=== PATIENT | female | born 1950 | race Caucasian/White ===

== ENCOUNTER → 2016-08-21 | Outpatient (CLI) | payer OTHER ==
--- NOTE | 2016-08-21 17:55 | DX ---
Cervical Spine, Two Views History: Two year followup to cervical fusion between C4 and C7. Comparison: February 21, 2016 Findings: Cervical alignment is stable and anatomic. A mild spondylolisthesis at C7-T1 is slightly gr eater. There is no evidence for an anterior compression plate fracture or screw loosening between C4 and C7. Interbody bone plugs remain in excellent position and do not show evidence for compression. T here is no prevertebral soft tissue swelling. Impression: 1. Stable postoperative cervical alignment. 2. Possibly increasing spondylolisthesis at C7-T1. If clinically indicated lateral cervical flexion-e xtension views might be useful. A Follow-Up Required test result notification was sent via the [employer] service, 5:52:27 PM, 08/21/2016 , [employer] Message ID [id number].
== END ==
LOC: FIMAGING 14:21
PROVIDERS: ATTEND Physician Assistant
DX: Z98.1 Arthrodesis status (principal); M43.13 Spondylolisthesis, cervicothoracic region

== ENCOUNTER 2016-09-28 18:48 | Emergency (ER) | payer OTHER ==
[2016-09-28] MEDS ORDERED: predniSONE 20 MG TAB PO ONE (20:27)
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
[2016-09-29 00:09] VITALS: BP 133/81; PULSE 74; RESP 20; TEMP 98.1; O2SAT 95
== END 2016-09-29 00:39 | disposition home or self-care (01) ==
LOC: CED 18:48
DX: M43.16 Spondylolisthesis, lumbar region (principal); M54.16 Radiculopathy, lumbar region; V89.2XXA Person injured in unspecified motor-vehicle accident, traffic, initial encounter; Y92.410 Unspecified street and highway as the place of occurrence of the external cause; Y93.89 Activity, other specified
CPT/HCPCS: 72100-PO; 72131-PO; G0463-PO

== ENCOUNTER → 2016-10-30 | Outpatient (CLI) | payer OTHER | LOC: FIMAGING 16:22 | PROVIDERS: ATTEND Physician Assistant | DX: Z09 Encounter for follow-up examination after completed treatment for conditions other than malignant neoplasm (principal); M43.12 Spondylolisthesis, cervical region; Z98.1 Arthrodesis status ==

== ENCOUNTER 2016-11-22 05:29 | Inpatient (IN) | payer OTHER ==
[2016-11-22] MEDS ORDERED: ceFAZolin 2 GM/DEXTROSE 100 ML IV ONE (06:00)
[2016-11-22] MEDS ORDERED: CHLORHEXIDINE GLUC HIBICLENS 118 ML BTL TP ONE (06:00)
[2016-11-22] MEDS ORDERED: LR 1,000 ML IV ONE (06:08)
[2016-11-22] MEDS ORDERED: LIDOCAINE 1% 5 ML SDV ID PRN (06:08)
[2016-11-22] MEDS ORDERED: LIDOCAINE 1% 2 ML INJ ONE (06:21)
[2016-11-22] MEDS ORDERED: HYDROmorphONE/DILAUDID 2 MG/ML INJ ONE (06:59)
[2016-11-22] MEDS ORDERED: PROPOFOL 200 MG/20 ML VIAL ONE (07:00)
[2016-11-22] MEDS ORDERED: BACITRACIN 50,000 UNITS/10 ML SYR IRR ONE (07:02)
[2016-11-22] MEDS ORDERED: ROCURONIUM 50 MG/5 ML VIAL ONE (07:02)
[2016-11-22] MEDS ORDERED: THROMBIN (BOVINE) 5,000 UNIT VIAL TP ONE ×2 (07:02→07:04)
[2016-11-22] MEDS ORDERED: BUPIVACAINE/EPI 0.25% 30 ML SDV ONE (07:02)
[2016-11-22] MEDS ORDERED: PHENYLEPHRINE HCL 100 MCG/ML SYR ONE (07:30)
[2016-11-22] MEDS ORDERED: ONDANSETRON DISINTEGRATING 4 MG TAB PO PRN (07:34)
[2016-11-22] MEDS ORDERED: diphenhydrAMINE 25 MG CAP PO PRN (07:34)
[2016-11-22] MEDS ORDERED: BISACODYL 10 MG SUPP PR PRN (07:34)
[2016-11-22] MEDS ORDERED: DIAZEPAM 10 MG/2 ML SYR IVP PRN (07:34)
[2016-11-22] MEDS ORDERED: HYDROmorphONE/DILAUDID 1 MG/ML SYR IVP PRN (07:34)
[2016-11-22] MEDS ORDERED: MAGNESIUM HYDROXIDE 30 ML UDCUP PO PRN (07:34)
[2016-11-22] MEDS ORDERED: POLYETHYLENE GLYCOL 3350 17 GM PKT PO PRN (07:34)
[2016-11-22] MEDS ORDERED: TEMAZEPAM 15 MG CAP PO PRN (07:34)
[2016-11-22] MEDS ORDERED: NALOXONE HCL 0.4 MG/ML INJ IVP PRN (07:34)
[2016-11-22] MEDS ORDERED: DIAZEPAM 5 MG TAB PO PRN (07:34)
[2016-11-22] MEDS ORDERED: LACTULOSE 20 GM/30 ML UDCUP PO PRN (07:34)
[2016-11-22] MEDS ORDERED: HYDROmorphONE/DILAUDID 6 MG/30 ML PCA IV PRN (07:34)
[2016-11-22] MEDS ORDERED: epHEDrine SULFATE 10 MG/ML SYR ONE (07:48)
[2016-11-22] MEDS ORDERED: FAMOTIDINE 20 MG/NACL 50 ML IV SCH (09:00)
[2016-11-22] MEDS ORDERED: HYDROmorphONE/DILAUDID 1 MG/ML SYR ONE (11:17)
[2016-11-22] MEDS ORDERED: fentaNYL 100 MCG/2 ML INJ ONE (11:17)
--- NOTE | 2016-11-22 11:50 | SOAPPROG ---
SOAP Progress Note Assessment/Plan: Post Op Note S: Awake and alert. NAD. Pt with expected lower back pain, legs feel better O: AFVSS/PERRLA/EOMI no droop CN 2-12 grossly intact +lt touch 5/5 BUE/BLE = CDI DENNISE in place A/P: 66 yo female that is s/p TLIF L4/5 -brace fit already -PT/OT pending -DENNISE in place -Pt seen by Dr Mckeon -Call NS with any changes or issues 11/22/16 11:48 ICD10 Worksheet Patient Problems: Problems Problem Status Onset Arthrodesis present Acute Arthrodesis status Acute H/O arthrodesis Acute Lumbago Acute Lumbar radicular pain Acute Arthrodesis status Acute Cervical radiculitis Acute Neck pain Acute - ICD10 Problem Qualifiers (1) Lumbago Qualifiers: Chronicity: C Back pain laterality: B Sciatica presence: S Sciatica laterality: S (2) Lumbar radicular pain (3) Arthrodesis status (4) Arthrodesis present (5) H/O arthrodesis
[2016-11-22] MEDS ORDERED: DIAZEPAM 5 MG TAB ONE (12:00)
[2016-11-22] MEDS: METHOCARBAMOL 750 MG TAB PO PRN (13:13)
[2016-11-22] MEDS: oxyCODONE IR 5 MG TAB PO PRN ×2 (13:13→19:45)
[2016-11-22] MEDS: ONDANSETRON 4 MG/2 ML VIAL IVP PRN ×3 (13:13→22:47)
[2016-11-22] MEDS: LIOTHYRONINE SODIUM 5 MCG TAB PO SCH (13:43)
[2016-11-22] MEDS: SENNOSIDES/DOCUSATE SODIUM TAB PO SCH ×2 (13:43→19:45)
[2016-11-22] MEDS: NS W/ 20 KCl/L 1,000 ML IV SCH (14:15)
[2016-11-22] MEDS: ACETAMINOPHEN 325 MG TAB PO PRN (17:15)
[2016-11-22] MEDS: FAMOTIDINE 20 MG TAB PO SCH (19:45)
--- NOTE | 2016-11-22 22:00 | GOP ---
[f rep st] OPERATIVE REPORT DATE OF OPERATION: 11/22/2016 SURGEON: Galen Mckeon MD CHIEF PAYROLL CLERK: Glenn Robertson PA-C. PREOPERATIVE DIAGNOSIS: Lumbar spondylolisthesis with stenosis and bilateral lumbosacral radiculopa thy L4-5, lumbar degenerative disk disease. POSTOPERATIVE DIAGNOSIS: Lumbar spondylolisthesis with stenosis and bilateral lumbosacral radiculop athy L4-5, lumbar degenerative disk disease. PROCEDURE PERFORMED: Posterior, lateral and intervertebral arthrodesis with bilateral decompression s at L4-5 with a right-sided transforaminal lumbar interbody fusion at L4-5 (70221), posterior nonse gmental instrumentation across a single interspace L4-5 (45974), microscope, stereotaxy for spinal i nstrumentation, same-incision bone graft harvest, placement of biomechanical intervertebral device L 4-5, microscope. FINDINGS: ESTIMATED BLOOD LOSS: 150 cc. DESCRIPTION OF PROCEDURE: The patient was taken to the operating room, placed in the supine positio n. General anesthesia was begun. She was flipped prone onto the Artur table. Care was taken to pad all points of contact. Her back was sterilely prepped and draped in the usual fashion. A local izing x-ray was taken. We made a 4.5 cm incision above the L4-5 interspace. The subcutaneous tissu e was dissected using Bovie cautery down through the fascia and a subperiosteal dissection was made down the L4-5 lamina. A self-retainer retractor was placed. A localizing x-ray was taken. She had terrible bilateral facet arthropathy at L4-5 with incompetent facet joints at that level. We denud ed the L4-5 facet joints, decorticated the transverse processes at L4-5, attached the Stealth refere nce frame, and using frameless Stealth stereotaxy, we placed pedicle screws bilaterally at L4 and L5 . The left L4 screw was somewhat rostral on the pedicle and this was determined by lateral x-ray. We removed that screw and placed it using stereotaxy through a new trajectory through the pedicle, a nd had excellent bony purchase. Her bone was somewhat soft, but we were able to get good purchase o f the screws. We performed an O-arm spin. The hardware was all in excellent position and stimulate d at acceptable levels. We removed all soft tissue of the bone at L4-5, decorticated all visible sharita ne present, harvested the inferior L4 spinous process for autologous grafting purposes, and drilled bilateral laminectomies at L4-5 and harvested this bone as well. We then decompressed the central t hecal sac and under the microscope removed the ligamentum flavum and perform bilateral recess decomp ressions. The right was worse than the left. We did a complete right facetectomy, then incised the L4-5 disk, removed the disk and the cartilaginous endplates. We roughened the subchondral bone to create arthrodesis at L4-5 and then chose an expandable intervertebral device which was inserted und er fluoroscopic guidance into the L4-5 space. We used 1.5 mg of BMP for the surgery in 1 mg was garima efren into the disk space. We also put bony autograft into the disk space. The device was expanded u nder fluoroscopic guidance. We were happy with the position of the device and then final tightened all our cap screws according to company specification, placed BMP and bony autograft posterolaterall y bilaterally, and then closed the incision in multiple layers using Vicryl sutures after placing a subfascial drain. There were no complications. The patient tolerated the procedure. COMPLICATIONS: None. INSTRUMENTATION: [employer] Solera pedicle screw instrumentation with an 8 x 28 mm Elevate cage with a 4.75 mm cyn system. COMPLICATIONS: None. INDICATIONS FOR THE PROCEDURE: The patient is an elderly female who struggled with a cervical fusio n surgery that she had in months past, but ultimately had an excellent result from this. Her periop erative period was challenging and it took time for her to recovery from surgery, but she has had a wonderful outcome and has returned to driving with great comfort in her neck, and she was happy. Keli colon was developing relentless and terrible bilateral leg pain, right greater than left. It was unbear able, even prompting an emergency room visit and MRIs did demonstrate spondylolisthesis at L4-5. Th ere was severe stenosis, right greater than left, and I suggested a single-level surgery. The risk of screw and hardware malposition, malfunction, major vascular injury, nerve injury, spinal fluid le ak, continued symptoms, and possible need for future surgery at adjacent segments was discussed. Keli colon knew that surgery sometimes fails and she did want to proceed. /[id number]/MODL
[2016-11-23] MEDS: ACETAMINOPHEN 325 MG TAB PO PRN (03:13)
[2016-11-23] MEDS: NS W/ 20 KCl/L 1,000 ML IV SCH (03:14)
[2016-11-23 05:06] LABS: % IMMATURE GRANULYOCYTES 0.3 % (0.0-1.1); ABSOLUTE IMMATURE GRANULOCYTES 0.02 10^3/uL (0.00-0.10); ADD DIFF? NO; ADD MORPH? NO; ADD SCAN? NO; ATYPICAL LYMPHOCYTE FLAG 20 (0-99); FRAGMENT RBC FLAG 0 (0-99); HEMATOCRIT 27.5 % (38.0-47.0); LEFT SHIFT FLG 0 (0-99); LIPEMIA HEMOLYSIS FLAG 80 (0-99); MEAN CELL HEMOGLOBIN 31.7 pg (27.9-34.1); MEAN CELL HEMOGLOBIN CONCENTR. 32.7 g/dL (32.4-36.7); MEAN CELL VOLUME 96.8 fL (81.5-99.8); MEAN PLATELET VOLUME 9.6 fL (8.7-11.7); PLATELET CLUMPS FLAG 0 (0-99); PLATELET COUNT 229 10^3/uL (150-400); RED BLOOD CELL COUNT 2.84 10^6/uL (4.18-5.33); RED CELL DISTRIBUTION WIDTH 12.9 % (11.5-15.2)
[2016-11-23] MEDS: LIOTHYRONINE SODIUM 5 MCG TAB PO SCH ×2 (05:07→08:54)
[2016-11-23] MEDS: LEVOTHYROXINE 50 MCG TAB PO SCH (05:07)
[2016-11-23 05:20] LABS: ANION GAP 4 mEq/L (8-16); CALCIUM 8.9 mg/dL (8.5-10.4); CARBON DIOXIDE 26 mEq/l (22-31); CHLORIDE 107 mEq/L (97-110); CREATININE 0.7 mg/dL (0.6-1.0); GLOMERULAR FILTRATION RATE > 60; GLUCOSE 86 mg/dL (70-100); POTASSIUM 4.7 mEq/L (3.5-5.2); SODIUM 137 mEq/L (134-144)
[2016-11-23] MEDS: oxyCODONE IR 5 MG TAB PO PRN (05:21)
[2016-11-23] MEDS: HYDROCODONE/APAP 10/325 TAB PO PRN ×3 (07:50→20:04)
--- NOTE | 2016-11-23 08:41 | NEUSURGPN ---
Assessment/Plan: A/P: 66 yo female that is s/p TLIF L4/5 -Nuero stable and doing well -Optimize pain control -PT/OT -DENNISE to be removed -Postop xrays pending today -DVT Prophy: TEDs, SCDs, Lovenox pending POD 2 -Pt seen by Dr Mckeon -Dispo- Most likely dc tomorrow if cleared by therapies -Call NS with any changes or issues Subjective: Patient has expected back pain. Legs feel great and has been up to void and walk in hallway. Pain well controlled. Objective: NAD VSS BLE 5/5= Sensation intact to lt touch Incision c/d/i-dressed DENNISE X1- to be removed today - Physician Discussed Patient with Dr.: Mike Patient Seen by : Mike Neurosurgery Physical Exam - Vitals, I&O, Labs I and O 11/22/16 11/23/16 11/24/16 05:59 05:59 05:59 Intake Total 4440 Output Total 1575 Balance 2865 Intake: Oral (ml) 2140 IV Intake (ml) 1350 IV Infused (ml) 950 NS W/ 20 KCl/L 1,000 ml @ 900 75 mls/hr IV CONT [facility] Rx #:[id number] ceFAZolin 1 GM/DEXTROSE 50 50 ml @ 200 mls/hr IV Q8HRS [facility] Rx#:[id number] Output: Urine (ml) 850 Bedside Commode 450 Toilet 400 Estimated Blood Loss (ml) 150 Emesis (ml) 300 Wound Drainage (ml) 185 Back Artur Phillips 185 Wound Drainage (ml) 90 Posterior Back Artur 90 Phillips Other: Number of Voids Toilet 1 Number of Emesis 1 Occurrences Vital Signs Temp Pulse Resp BP Pulse Ox 36.6 C 64 14 99/60 L 95 11/23/16 08:03 11/23/16 08:03 11/23/16 08:03 11/23/16 08:03 11/23/16 08:03 Laboratory Results 11/23/16 04:43 11/23/16 04:43 ICD10 Worksheet Patient Problems: Problems Problem Status Onset Arthrodesis present Acute Arthrodesis status Acute H/O arthrodesis Acute Lumbago Acute Lumbar radicular pain Acute Arthrodesis status Acute Cervical radiculitis Acute Neck pain Acute
[2016-11-23] MEDS: SENNOSIDES/DOCUSATE SODIUM TAB PO SCH ×2 (08:54→20:04)
[2016-11-23] MEDS: FAMOTIDINE 20 MG TAB PO SCH ×2 (08:54→20:04)
[2016-11-24] MEDS: HYDROCODONE/APAP 10/325 TAB PO PRN ×3 (03:49→20:09)
[2016-11-24] MEDS: LEVOTHYROXINE 50 MCG TAB PO SCH (04:55)
[2016-11-24] MEDS: LIOTHYRONINE SODIUM 5 MCG TAB PO SCH (04:55)
[2016-11-24] MEDS ORDERED: LEVOTHYROXINE 25 MCG TAB PO ONE (05:30)
--- NOTE | 2016-11-24 08:01 | NEUSURGPN ---
Assessment/Plan: A/P: 66 yo female that is s/p TLIF L4/5 on 11/22/16 -Optimize pain control -PT/OT -Postop xrays pending -DVT Prophy: TEDs, SCDs, Lovenox -Pt seen by Dr Mckeon -Dispo-Patient recommended for inpatient rehab, dispo when insurance approval/ bed available -Call NS with any changes or issues -Discussed with Dr. Mckeon Subjective: low back pain improved. Denies any new weakness Objective: NAD BUE & BLE 5/5= Sensation intact to lt touch Incision c/d/i-dressed - Physician Discussed Patient with : Mike Neurosurgery Physical Exam - Vitals, I&O, Labs I and O 11/23/16 11/24/16 11/25/16 05:59 05:59 05:59 Intake Total 4440 1200 Output Total 1575 760 Balance 2865 440 Intake: Oral (ml) 2140 1200 IV Intake (ml) 1350 IV Infused (ml) 950 NS W/ 20 KCl/L 1,000 ml @ 900 75 mls/hr IV CONT [facility] Rx #:[id number] ceFAZolin 1 GM/DEXTROSE 50 50 ml @ 200 mls/hr IV Q8HRS [facility] Rx#:[id number] Output: Urine (ml) 850 700 Bedside Commode 450 Toilet 400 700 Estimated Blood Loss (ml) 150 Emesis (ml) 300 Wound Drainage (ml) 185 60 Back Artur Phillips 185 60 Wound Drainage (ml) 90 Posterior Back Artur 90 Phillips Other: Number of Voids Toilet 1 1 Number of Emesis 1 Occurrences Vital Signs Temp Pulse Resp BP Pulse Ox 37.0 C 75 14 100/64 94 11/24/16 07:57 11/24/16 07:57 11/24/16 07:57 11/24/16 07:57 11/24/16 07:57 Laboratory Results 11/23/16 04:43 11/23/16 04:43 ICD10 Worksheet Patient Problems: Problems Problem Status Onset Arthrodesis present Acute Arthrodesis status Acute H/O arthrodesis Acute Lumbago Acute Lumbar radicular pain Acute Arthrodesis status Acute Cervical radiculitis Acute Neck pain Acute
[2016-11-24] MEDS: SENNOSIDES/DOCUSATE SODIUM TAB PO SCH ×2 (09:33→20:10)
[2016-11-24] MEDS: FAMOTIDINE 20 MG TAB PO SCH ×2 (09:33→20:10)
[2016-11-24 23:05] VITALS: RESP 16
[2016-11-25] MEDS: HYDROCODONE/APAP 10/325 TAB PO PRN ×2 (04:45→09:44)
[2016-11-25] MEDS: LIOTHYRONINE SODIUM 5 MCG TAB PO SCH (04:45)
[2016-11-25] MEDS ORDERED: LEVOTHYROXINE 50 MCG TAB PO SCH (06:00)
[2016-11-25 07:24] VITALS: BP 100/64; PULSE 81; TEMP 98.5; O2SAT 95
[2016-11-25] MEDS ORDERED: ENOXAPARIN 40 MG/0.4 ML SYR SC SCH (09:00)
--- NOTE | 2016-11-25 09:13 | NEUSURGPN ---
Assessment/Plan: A/P: 66 yo female that is s/p TLIF L4/5 on 11/22/16 -Optimize pain control -PT/OT -Postop xrays with intact hardware -DVT Prophy: TEDs, SCDs, Lovenox -Dispo-Patient recommended for inpatient rehab, dispo when insurance approval/ bed available -Call NS with any changes or issues -Discussed with Dr. Mckeon Subjective: low back pain improved. Denies nay new leg weakness, numbness or tingling Objective: NAD A7Ox3 MAEx4 5/5 and equal in BUE and BLE. Incision c/d/i - Physician Discussed Patient with : Mike Neurosurgery Physical Exam - Vitals, I&O, Labs I and O 11/24/16 11/25/16 11/26/16 05:59 05:59 05:59 Intake Total 1200 1000 Output Total 760 800 Balance 440 200 Intake: Oral (ml) 1200 1000 Output: Urine (ml) 700 800 Toilet 700 800 Wound Drainage (ml) 60 Back Artur Phillips 60 Other: Intake Quantity Yes Sufficient Number of Voids Toilet 1 1 2 Number of Stools Toilet 1 1 Vital Signs Temp Pulse Resp BP Pulse Ox 36.9 C 81 16 100/64 95 11/25/16 07:20 11/25/16 07:20 11/25/16 07:20 11/25/16 07:20 11/25/16 07:20 Laboratory Results 11/23/16 04:43 11/23/16 04:43 ICD10 Worksheet Patient Problems: Problems Problem Status Onset Arthrodesis present Acute Arthrodesis status Acute H/O arthrodesis Acute Lumbago Acute Lumbar radicular pain Acute Arthrodesis status Acute Cervical radiculitis Acute Neck pain Acute
--- NOTE | 2016-11-25 09:14 | PDIAF ---
- Diagnosis Code Status: Full Code - Medication Management Discharge Medications: Medications to Continue on Transfer Herbals/Supplements -Info Only 1 ea PO DAILY 10/13/16 [Last Taken 11/08/16] Levothyroxine [Synthroid 50 mcg (*)] 50 mcg PO DAILY06 10/13/16 [Last Taken ] Liothyronine Sodium [Cytomel 5 mcg (*)] 5 mcg PO DAILY 10/13/16 [Last Taken ] Multivitamins [Multivitamin (*)] 1 each PO DAILY 10/13/16 [Last Taken 11/08/16] Discharge Medications: Refer to the Discharge Home Medication list for PRN reason. - Orders Services needed: Certified Cylinder Grinder, Occupational Therapy, Speech Language Pathologist - Follow Up Care Current Providers and Referrals: Nicolette Hsu MD [Primary Care Provider] -
[2016-11-25] MEDS: SENNOSIDES/DOCUSATE SODIUM TAB PO SCH (09:43)
[2016-11-25] MEDS: METHOCARBAMOL 750 MG TAB PO PRN (09:44)
[2016-11-25] MEDS: FAMOTIDINE 20 MG TAB PO SCH (09:45)
[2016-11-27] MEDS ORDERED: LEVOTHYROXINE 75 MCG TAB PO SCH (06:00)
== END 2016-11-25 14:38 | DRG 460 ==
LOC: F3N 05:29
PROVIDERS: ADMIT Neurological Surgery; ATTEND Neurological Surgery
PROC: 3E0U0GB Introduction of Recombinant Bone Morphogenetic Protein into Joints, Open Approach (ICD-10-PCS; principal; 2016-11-22 07:30)
PROC: 0ST20ZZ Resection of Lumbar Vertebral Disc, Open Approach (ICD-10-PCS; principal; 2016-11-22 07:30)
PROC: 0SG00AJ Fusion of Lumbar Vertebral Joint with Interbody Fusion Device, Posterior Approach, Anterior Column, Open Approach (ICD-10-PCS; principal; 2016-11-22 07:30)
PROC: 01NB0ZZ Release Lumbar Nerve, Open Approach (ICD-10-PCS; principal; 2016-11-22 07:30)
DX: M48.06 Spinal stenosis, lumbar region (principal); M51.16 Intervertebral disc disorders with radiculopathy, lumbar region; M43.16 Spondylolisthesis, lumbar region; Z98.1 Arthrodesis status
CPT/HCPCS: 97110-GP; 97116-GP; 97162-GP; 97165-GO; 97530-GP; 97535-GO; C1713; G8978-GP-CJ; G8979-GP-CI; G8987-GO-CK; G8988-GO-CH; J0690; J1170; J1650; J2370; J2405; J2704; J3010

== ENCOUNTER → 2017-01-22 | Outpatient (CLI) | payer OTHER | LOC: FIMAGING 10:24 | PROVIDERS: ATTEND Nurse Practitioner | DX: Z47.89 Encounter for other orthopedic aftercare (principal); Z98.1 Arthrodesis status ==

== ENCOUNTER → 2017-04-03 | Outpatient (CLI) | payer OTHER | LOC: FIMAGING 12:36 | PROVIDERS: ATTEND Internal Medicine Hematology & Oncology | DX: C90.00 Multiple myeloma not having achieved remission (principal) ==

== ENCOUNTER → 2017-04-19 | Outpatient (CLI) | payer OTHER | LOC: BMCIMAGING 10:22 | PROVIDERS: ATTEND Internal Medicine | DX: Z13.820 Encounter for screening for osteoporosis (principal); M81.0 Age-related osteoporosis without current pathological fracture ==

== ENCOUNTER → 2017-04-23 | Outpatient (CLI) | payer OTHER | LOC: FIMAGING 12:49 | PROVIDERS: ATTEND Nurse Practitioner | DX: Z98.1 Arthrodesis status (principal) ==

== ENCOUNTER → 2017-10-01 | Outpatient (CLI) | payer OTHER | LOC: FIMAGING 13:20 → EDSTATUS 13:25 | PROVIDERS: ATTEND Internal Medicine Hematology & Oncology | DX: C90.01 Multiple myeloma in remission (principal); R11.10 Vomiting, unspecified; R05 Cough; R53.83 Other fatigue ==

== ENCOUNTER → 2017-10-05 | Outpatient (CLI) | payer OTHER | LOC: FIMAGING 10:18 | PROVIDERS: ATTEND Internal Medicine Hematology & Oncology | DX: Z12.31 Encounter for screening mammogram for malignant neoplasm of breast (principal); Z85.79 Personal history of other malignant neoplasms of lymphoid, hematopoietic and related tissues ==

== ENCOUNTER → 2017-10-16 | Outpatient (CLI) | payer OTHER | LOC: FIMAGING 13:18 | PROVIDERS: ATTEND Nurse Practitioner | DX: Z09 Encounter for follow-up examination after completed treatment for conditions other than malignant neoplasm (principal); Z98.1 Arthrodesis status ==

== ENCOUNTER → 2018-04-03 | Outpatient (CLI) | payer OTHER ==
[~2018-04-03] MED LIST: GADOBUTROL 10 ML VIAL IVP ONE
== END ==
LOC: FIMAGING 07:42
PROVIDERS: ATTEND Internal Medicine Hematology & Oncology
DX: C90.01 Multiple myeloma in remission (principal); M48.03 Spinal stenosis, cervicothoracic region; M48.061 Spinal stenosis, lumbar region without neurogenic claudication; M53.82 Other specified dorsopathies, cervical region; M53.86 Other specified dorsopathies, lumbar region; M43.12 Spondylolisthesis, cervical region; M43.16 Spondylolisthesis, lumbar region
CPT/HCPCS: 72156; 72157; 72158; A9585

== ENCOUNTER 2018-07-07 12:48 | Emergency (ER) | payer OTHER ==
[2018-07-07] MEDS ORDERED: LORazepam 2 MG/ML INJ IVP ONE (15:02)
[2018-07-07] MEDS ORDERED: ALBUTEROL 3 ML DEYVIAL IH ONE (15:15)
[2018-07-07] MEDS ORDERED: ALBUTEROL INH PREPACK MDI TAKEHOME ONE (15:19)
--- NOTE | 2018-07-07 15:20 | EDPHY ---
H & P Stated Complaint: SOB x 1 week Time Seen by Provider: 07/07/18 14:34 HPI/ROS: CHIEF COMPLAINT: Shortness of breath HISTORY OF PRESENT ILLNESS: 67-year-old female with history of multiple myeloma as well as hypothyroidism and anemia presents reporting that she has been short of breath for the last week. She has had a cough which has been productive of some mucus. No chest pain. No fevers or chills. No nausea, vomiting, or diarrhea. Patient called the on-call oncologist this evening with complaints of worsening cough and shortness of breath. They advised that she should come to the emergency department for chest x-ray. No palpitations or lightheadedness or dizziness. REVIEW OF SYSTEMS: A comprehensive 10 system review of systems was reviewed and is otherwise negative aside from elements mentioned in the history of present illness and medical decision making. PAST MEDICAL HISTORY: Multiple myeloma, hypothyroidism, anemia, alpha 1 antitrypsin trypsin syndrome SOCIAL HISTORY: Nonsmoker. VITAL SIGNS Reviewed by me. Not hypoxic. No fever. GENERAL: Well-developed, well-nourished, seems visibly tachypneic and has an occasional cough. HEENT: Atraumatic. Eyes: No icterus, no injection. Mouth: moist mucous membranes. No erythema or lesions. Neck: supple with no adenopathy. LUNGS: Faint wheezes throughout. No rhonchi or rales. CARDIAC: Regular rate and rhythm, no rubs, murmurs or gallops. ABDOMEN: Soft, nontender, nondistended, bowel sounds normal. BACK: No CVA tenderness. EXTREMITIES: No trauma. No edema. Range of motion is normal throughout. NEURO: Alert and oriented, grossly nonfocal. SKIN: Warm and dry, no rash. PSYCHIATRIC: Normal mentation, no agitation. - Personal History Tetanus Vaccine Date: 2008 - Medical/Surgical History Hx Asthma: No Hx Chronic Respiratory Disease: No Hx Diabetes: No Hx Cardiac Disease: No Hx Renal Disease: No Hx Cirrhosis: No Hx Alcoholism: No Hx HIV/AIDS: No Hx Splenectomy or Spleen Trauma: No Other PMH: hypothyroidism, back pain, neck fusion, knee surg, Alpha 1- antitrypsin deficiency. Post op delerium 2015, multiple myloma - Social History Smoking Status: Never smoked Constitutional: Initial Vital Signs Temperature (C) 36.7 C 07/07/18 12:51 Heart Rate 77 07/07/18 12:51 Respiratory Rate 18 07/07/18 12:51 Blood Pressure 128/79 H 07/07/18 12:51 O2 Sat (%) 98 07/07/18 12:51 O2 Delivery Mode Room Air Allergies/Adverse Reactions: No Known Allergies Allergy (Unverified 07/07/18 12:51) Home Medications: Medication Instructions Recorded Herbals/Supplements -Info Only 1 ea PO DAILY 10/13/16 Levothyroxine [Synthroid 50 mcg 50 mcg PO DAILY06 10/13/16 (*)] Liothyronine Sodium [Cytomel 5 mcg 5 mcg PO DAILY 10/13/16 (*)] Multivitamins [Multivitamin (*)] 1 each PO DAILY 10/13/16 Enoxaparin [Lovenox 40 MG (*)] 40 mg SC DAILY #0 syr 11/25/16 HYDROcodone/APAP 10/325 [[place] 1 - 2 tab PO Q6HRS PRN #0 tab 11/25/16 10/325 (*)] Methocarbamol [Robaxin 750 mg (*)] 750 mg PO QID PRN #0 tab 11/25/16 Sennosides/Docusate Sodium 1 - 2 tab PO BID #0 tab 11/25/16 [Senokot-S] Medical Decision Making - Diagnostics Imaging Results: Imaging Impressions Chest X-Ray 07/07/18 14:47 Impression: No pneumonia or failure. Mild airways disease similar to 3 2017. ED Course/Re-evaluation: Patient would like only to have a chest x-ray. Chest x-ray demonstrates no pneumonia. She agreed to a albuterol nebulizer treatment. I had a long discussion with the patient and offered her further evaluation to include EKG, laboratory evaluation, and perhaps repeat nebs. She does not want any of this done at this time. She states she feels well enough to follow up tomorrow at Oncology. She tells me that she only wanted to have a chest x-ray to make sure she did have pneumonia. She was discharged with a meter dose inhaler. She will follow up as directed. Differential Diagnosis: Differential diagnosis for the patient's shortness of breath was considered including but not limited to pulmonary infectious processes, COPD exacerbation, pulmonary emboli, pulmonary edema, congestive heart failure, and cardiac causes. - Data Points Medications Given: Discontinued Medications Albuterol (Proventil Neb) 3 ml IH EDNOW ONE Stop: 07/07/18 15:16 Last Admin: 07/07/18 15:27 Dose: 3 ml Albuterol Sulfate (Proventil Inh Prepack) 1 mdi TAKEHOME EDNOW ONE Stop: 07/07/18 15:20 Last Admin: 07/07/18 15:27 Dose: 1 mdi Lorazepam (Ativan Injection) 1 mg IVP EDNOW ONE Stop: 07/07/18 15:03 Last Admin: 07/07/18 15:11 Dose: Not Given Departure - Departure Disposition: Home, Routine, Self-Care Clinical Impression: Acute bronchitis Qualifiers: Bronchitis organism: unspecified organism Qualified Code(s): J20.9 - Acute bronchitis, unspecified Condition: Good Instructions: Albuterol (By breathing), Acute Bronchitis (ED), How to Use a Nebulizer (ED), Bronchospasm (ED) Additional Instructions: I see no sign of a pneumonia on your chest x-ray. Please use the meter dose inhaler, 2-4 puffs, every 4-6 hours to treat your shortness of breath and cough. Please follow up as previously scheduled at [facility] in the morning for laboratory evaluation. You been offered further evaluation and treatment in the emergency department which you have declined. If you begin to run a fever, have nausea, vomiting, worsening chest pain, worsening shortness of breath, feel poorly, or other concerns, please return to the emergency department or seek care urgently. Referrals: Mariangel Fowler MD [Primary Care Provider] - As per Instructions Racquel Tapia MD [Medical Doctor] - As per Instructions
[2018-07-07 16:24] VITALS: BP 122/76
== END 2018-07-07 16:21 | disposition home or self-care (01) ==
DX: J20.9 Acute bronchitis, unspecified (principal); C90.00 Multiple myeloma not having achieved remission; D64.9 Anemia, unspecified; E03.9 Hypothyroidism, unspecified
CPT/HCPCS: 71046; 99283; J7613

== ENCOUNTER → 2018-10-14 | Outpatient (CLI) | payer OTHER | LOC: FIMAGING 10:31 | PROVIDERS: ATTEND Nurse Practitioner | DX: Z09 Encounter for follow-up examination after completed treatment for conditions other than malignant neoplasm (principal); Z98.1 Arthrodesis status ==

== ENCOUNTER → 2018-11-04 | Outpatient (CLI) | payer OTHER | LOC: FIMAGING 07:35 | PROVIDERS: ATTEND Physician Assistant | DX: M48.02 Spinal stenosis, cervical region (principal); M51.34 Other intervertebral disc degeneration, thoracic region; C90.01 Multiple myeloma in remission; Z98.1 Arthrodesis status | CPT/HCPCS: 72156; A9585 ==

== ENCOUNTER → 2018-11-08 | Outpatient (CLI) | payer OTHER | LOC: FIMAGING 09:41 | PROVIDERS: ATTEND Internal Medicine Hematology & Oncology | DX: Z12.31 Encounter for screening mammogram for malignant neoplasm of breast (principal) ==